=== PATIENT | female | born 1940 | race Caucasian/White ===

== ENCOUNTER → 2016-11-29 | Outpatient (CLI) | payer MEDICARE, OTHER ==
[~2016-11-29] MED LIST: NEXIUM; SYNTHROID; VICODIN 5/1 TAB 5/50 PO
--- NOTE | ~2016-11-29 | BD1 ---
[facility] A Service of [facility] & [facility] RADIOLOGY TEXT RESULTS PATIENT: SUJIT SMITH LOCATION: [facility] : 40 UNIT #: [id number] AGE: [address]: Sofie Nina MD SEX: F ORDER DR: [id number] [place] [id number] O MR#: [id number] Acc #: [id number] NAME: SUJIT SMITH : 1940 SEX: F STUDY DATE/TIME: 11/29/2016 10:17 UNIT: [facility] ROOM: STUDY DESCRIPTION: BD Dexa Bone Dens 1+ Site Attending Physician: Sofie Nina M.D. Referring Physician: Sofie Nina M.D. Ordering Physician: Sofie Nina M.D. Primary Care Physician: Marlys Rosario M.D. MEDICAL IMAGING REPORT This report is preliminary unless electronic signature is present. EXAM DXA scan, 11/29/2016 HISTORY Status post menopause with no hormone replacement therapy. Osteopenia. Hysterectomy at age 45. Thyroid medication for 12 years. FINDINGS Bone mineral density in the lumbar spine from L1-L4 is 0.86 g/cm2 which is 2.7 standard deviations below the mean when compared to the young adult reference population which is characteristic of osteoporosis. This is 0.3 standard deviations below the mean when compared to the age-matched population. Compared with 04/13/2016 there has been a decrease in bone mineral density in the lumbar spine of 0.7%. Bone mineral density in the left femoral neck was 0.628 g/cm2 which is 3 standard deviations below the mean when compared to the young adult reference population which is characteristic of osteoporosis. This is 0.6 standard deviations below the mean when compared to the age-matched population. Compared with 04/13/2016 there has been an increase in bone mineral density in the left hip of 5.5%. Bone mineral density in the right femoral neck was 0.689 g/cm2 which is 2.5 standard deviations below the mean when compared to the young adult reference population which is characteristic of osteoporosis. This is 0.2 standard deviations below the mean when compared to the age-matched population. Compared with 04/13/2016 there has been an increase in bone mineral density in the right hip of 4.9%. IMPRESSION Bone mineral density in the lumbar spine and the hips bilaterally characteristic of osteoporosis. Compared with 04/13/2016 there has been a decrease in bone mineral density in the lumbar spine and an increase in STS. [facility] A Service of [facility] RADIOLOGY TEXT RESULTS PATIENT: SUJIT SMITH LOCATION: [facility] : 40 UNIT #: [id number] AGE: [address]: Sofie Nina MD SEX: F ORDER DR: bone mineral density in the hips bilaterally. Dictated by... Derrek Wells M.D. THIS IS AN ELECTRONICALLY VERIFIED REPORT Derrek Wells M.D. at 11/30/2016 8:20 AM SATYA/cecy TD: 11/29/2016 12:55 JOB #: [id number] MEDICAL IMAGING REPORT Page 1 of 1
== END | disposition home or self-care (01) ==
LOC: SRAD 07:52
DX: M81.0 Age-related osteoporosis without current pathological fracture (principal); Z90.710 Acquired absence of both cervix and uterus; Z79.899 Other long term (current) drug therapy
CPT/HCPCS: 77080